=== PATIENT | female | born 1960 | race African-American/Black ===

== ENCOUNTER 2023-08-08 23:54 | Inpatient (IN) | payer OTHER ==
[~2023-08-08] VITALS: Ht 157.5 cm; Wt 81.2 kg
[2023-08-09 00:49] LABS: BASOPHILS % 1.3 % (0.0-2.0); EOSINOPHILS % 3.5 % (0.0-5.0); HEMATOCRIT. 38.3 % (36.0-48.0); HEMOGLOBIN. 12.6 g/dL (12.0-16.0); LYMPHOCYTES % 40.2 % (20.0-50.0); MEAN CORPUSCULAR HEMOGLOBIN 26.4 pg (28.0-32.0); MEAN CORPUSCULAR HGB CONC 32.9 g/dL (31.0-37.0); MEAN CORPUSCULAR VOLUME 80.2 fL (81.0-99.0); MEAN PLATELET VOLUME 9.3 fl (7.4-10.4); MONOCYTES % 11.5 % (2.0-8.0); NEUTROPHILS % 43.5 % (40.0-76.0); PLATELET 240 x1000/uL (130-400); RED BLOOD CELL COUNT 4.77 mill/uL (4.2-5.4); RED CELL DISTRIBUTION WIDTH 13.7 % (11.6-14.6); WHITE BLOOD COUNT 4.8 x1000/uL (4.5-11.0)
[2023-08-09 01:01] LABS: CHLORIDE 101 mEq/L (98-107); POTASSIUM 3.6 mEq/L (3.5-5.1); SODIUM 138 mEq/L (136-145)
[2023-08-09 01:02] LABS: CALCIUM 10.7 mg/dL (8.7-10.4); CARBON DIOXIDE 27 mEq/L (21-32)
[2023-08-09 01:07] LABS: CREATININE 0.9 mg/dL (0.6-1.0); GLUCOSE 212 mg/dL (70-105); UREA NITROGEN BLOOD 12 mg/dL (9-23)
[2023-08-09 01:09] LABS: ALANINE AMINOTRANSFERASE 15 IU/L (10-49); ALBUMIN 4.1 g/dL (3.2-4.8); ASPARTATE AMINOTRANSFERASE 15 IU/L (<34); BILIRUBIN DIRECT 0.1 mg/dL (<=3.0); BILIRUBIN TOTAL 0.4 mg/dL (0.1-1.0)
[2023-08-09 01:12] LABS: TROPONIN I HIGH SENSITIVITY 897 ng/L (3.0-34)
[2023-08-09] MEDS: ASPIRIN 325MG EC TABLET PO ONE (01:43)
[2023-08-09] MEDS: ENOXAPARIN 80MG/0.8ML SYR SUBCUT ONE (01:45)
[2023-08-09 02:30] LABS: TROPONIN I HIGH SENSITIVITY 981 ng/L (3.0-34)
[2023-08-09] MEDS ORDERED: DEXTROSE 50% WATER 50ML SYRINGE IV PRN (10:30)
[2023-08-09] MEDS ORDERED: ONDANSETRON HCL 4MG/2ML INJ IV PRN (10:30)
[2023-08-09] MEDS: AMLODIPINE 10MG TABLET PO SCH (12:03)
[2023-08-09] MEDS: METOPROLOL TARTRATE 25MG TABLET PO SCH (12:05)
[2023-08-09] MEDS: INSULIN LISPRO 100 UNITS/ML SUBCUT SCH (12:37)
[2023-08-09] MEDS: BLOOD SUGAR DIAGNOSTIC STRIP TEST SCH (12:48)
[2023-08-09] MEDS: ENOXAPARIN 80MG/0.8ML SYR SUBCUT NR (15:29)
[2023-08-09 17:22] LABS: PROTHROMBIN TIME 10.7 sec (9.6-11.0)
[2023-08-09 17:44] LABS: TROPONIN I HIGH SENSITIVITY 919 ng/L (3.0-34)
[2023-08-09] MEDS: ATORVASTATIN CALCIUM 40MG TABLET PO SCH (21:53)
[2023-08-09] MEDS: FAMOTIDINE 20MG TABLET PO SCH (21:55)
[2023-08-09 23:00] VITALS: BP 189/72; PULSE 60; RESP 18; TEMP 97.4
[2023-08-09] MEDS: ENOXAPARIN 80MG/0.8ML SYR SUBCUT SCH (23:34)
[2023-08-09] MEDS: NITROGLYCERIN 0.4MG TABLET SL SL PRN (23:35)
[2023-08-09] MEDS: CLONIDINE 0.1MG TABLET PO PRN (23:36)
[2023-08-10] VITALS: BP 189/72; PULSE 60; RESP 18; TEMP 97.5
[2023-08-10 04:00] VITALS: BP 139/59; PULSE 90; RESP 18; TEMP 98.6
[2023-08-10 06:43] LABS: HEMOGLOBIN 12.9 g/dL (12.0-16.0); MEAN CORPUSCULAR HEMOGLOBIN 25.7 pg (28.0-32.0); MEAN CORPUSCULAR HGB CONC 32.2 g/dL (31.0-37.0); MEAN CORPUSCULAR VOLUME 79.9 fL (81.0-99.0); PLATELET 239 x1000/uL (130-400); RED BLOOD CELL COUNT 5.01 mill/uL (4.2-5.4); WHITE BLOOD COUNT 4.3 x1000/uL (4.5-11.0)
[2023-08-10 06:51] LABS: CARBON DIOXIDE 23 mEq/L (21-32); CHLORIDE 103 mEq/L (98-107); POTASSIUM 3.9 mEq/L (3.5-5.1); SODIUM 135 mEq/L (136-145)
[2023-08-10 06:53] LABS: CALCIUM 10.6 mg/dL (8.7-10.4)
[2023-08-10 06:57] LABS: CREATININE 0.7 mg/dL (0.6-1.0); GLUCOSE 227 mg/dL (70-105)
[2023-08-10 06:58] LABS: UREA NITROGEN BLOOD 9 mg/dL (9-23)
[2023-08-10 08:00] VITALS: BP 144/75; PULSE 54; RESP 18; TEMP 98
[2023-08-10] MEDS: ASPIRIN 81MG TABLET PO SCH (09:32)
[2023-08-10 12:00] VITALS: BP 128/64; PULSE 52; RESP 20; TEMP 97.9
[2023-08-10 16:00] VITALS: BP 117/62; PULSE 58; RESP 20; TEMP 98.1
[2023-08-10] MEDS: ACETAMINOPHEN 325MG TABLET PO PRN (18:03)
[2023-08-10 18:14] VITALS: BP 117/62; PULSE 58; TEMP 98.1; O2SAT 100
== END 2023-08-10 19:26 | disposition short-term general hospital (02) | DRG 282 ==
LOC: ER 08-09 00:53 → 5WST 08-09 02:29 → 8WST 08-09 22:30
PROVIDERS: ADMIT Internal Medicine; ATTEND Internal Medicine
DX: I21.4 Non-ST elevation (NSTEMI) myocardial infarction (principal); E11.9 Type 2 diabetes mellitus without complications; E78.00 Pure hypercholesterolemia, unspecified; I10 Essential (primary) hypertension; I25.10 Atherosclerotic heart disease of native coronary artery without angina pectoris; Z79.82 Long term (current) use of aspirin; Z95.5 Presence of coronary angioplasty implant and graft
CPT/HCPCS: 36415; 71045; 80048; 80076; 82962; 83880; 84484; 85025; 85027; 93005; 93306; 99291; J1650; J1815